=== PATIENT | female | born 2000 | race Two or more races ===

== ENCOUNTER 2022-03-09 06:20 | Emergency (ER) | payer OTHER ==
[~2022-03-09] VITALS: Ht 162.6 cm; Wt 58.5 kg
== END 2022-03-09 15:01 | disposition home or self-care (01) ==
LOC: ER 06:20
DX: F41.8 Other specified anxiety disorders (principal); R45.89 Other symptoms and signs involving emotional state

== ENCOUNTER 2022-05-01 08:01 | Outpatient (CLI) | payer OTHER | END 2022-05-01 09:25 | disposition home or self-care (01) | LOC: PRENATAL 08:01 | PROVIDERS: ATTEND Obstetrics & Gynecology Maternal & Fetal Medicine | DX: O35.9XX0 Maternal care for (suspected) fetal abnormality and damage, unspecified, not applicable or unspecified (principal); O35.3XX0 Maternal care for (suspected) damage to fetus from viral disease in mother, not applicable or unspecified; Z3A.20 20 weeks gestation of pregnancy ==

== ENCOUNTER 2022-07-17 12:33 | Emergency (ER) | payer OTHER ==
[~2022-07-17] VITALS: Ht 162.6 cm; Wt 69.4 kg
[2022-07-17] MEDS ORDERED: PRENA1 TRUE CO1 EACH PO (13:10)
== END 2022-07-17 18:56 | disposition home or self-care (01) ==
LOC: ER 12:33
DX: O99.513 Diseases of the respiratory system complicating pregnancy, third trimester (principal); J06.9 Acute upper respiratory infection, unspecified; O23.43 Unspecified infection of urinary tract in pregnancy, third trimester; N39.0 Urinary tract infection, site not specified; Z3A.31 31 weeks gestation of pregnancy; Z20.822 Contact with and (suspected) exposure to COVID-19

== ENCOUNTER 2022-09-15 12:11 | Inpatient (IN) | payer OTHER ==
[~2022-09-15] VITALS: Ht 152.4 cm; Wt 79.8 kg
[~2022-09-15 12:11] MED LIST: PRENA1 TRUE CO1 EACH PO
== END 2022-09-17 13:14 | disposition home or self-care (01) | DRG 807 ==
LOC: LDR 12:11 → OB/GYN 19:46
PROVIDERS: ADMIT Obstetrics & Gynecology; ATTEND Obstetrics & Gynecology
PROC: 10E0XZZ Delivery of Products of Conception, External Approach (ICD-10-PCS; principal; 2022-09-15)
PROC: 0KQM0ZZ Repair Perineum Muscle, Open Approach (ICD-10-PCS; 2022-09-15)
PROC: 4A1HXCZ Monitoring of Products of Conception, Cardiac Rate, External Approach (ICD-10-PCS; 2022-09-15)
DX: O70.1 Second degree perineal laceration during delivery (principal); Z37.0 Single live birth; Z3A.39 39 weeks gestation of pregnancy; Z20.822 Contact with and (suspected) exposure to COVID-19